=== PATIENT | male | born 1960 | race Caucasian/White ===

== ENCOUNTER 2018-02-20 11:46 | Day surgery (SDC) | payer OTHER, SELFPAY ==
[2018-02-20] VITALS (8 sets, daily range): BP systolic 114–137; BP diastolic 48–81; PULSE 55–84; RESP 14–18; TEMP 36.6–36.8; O2SAT 93–99; BMI 37.5
[2018-02-20] MEDS: LACTATED RINGERS 1,000 ML 42 ML IV ×2 (12:28→15:17)
[2018-02-20] MEDS: CEFAZOLIN 2 GM/100 ML FROZ.PIGGY IV (14:27)
--- NOTE | 2018-02-20 14:28 | PM.PREOP ---
Pre-operative Note Interval Note History & Physical reviewed/Exam performed by Physician: Yes Changes to H&P: Yes
--- NOTE | 2018-02-20 14:30 | P.OP_ITS ---
Operative Date/Time/Diagnoses Date of procedure: 02/20/18 Time of procedure: 14:28 Post-op diagnosis: same Procedure & Clinicians Procedure: Left proximal hamstring repair Same procedure as scheduled: Yes Indications: This is a 57-year-old gentleman who fell and had an injury at work and sustained acute injury to his left hamstrings. MRI scan confirmed a complete rupture of the proximal hamstring insertion is brought to the operating room for repair. Surgeon: Marycarmen Son Digital Advertising Analyst: Nkechi Chambers Anesthesia Type: General Operative Notes Findings: Complete rupture of the proximal hamstring insertion, adequate mobilization of the tendon an adequate repair to the ischium Closure Type: primary Specimen(s): none sent Implants & Drains: Suture anchors Estimated Blood Loss (mL): 100 Procedure in detail: Patient was brought to the operating room and underwent induction of a general anesthesia. He was carefully rolled into the prone position with careful padding of his chest with chest rolls. His left lower extremity was prepped draped standard sterile fashion. A time-out was performed and antibiotics were given. An incision was made at the gluteal fold. Deep Gelpi retractors were placed. Dissection was carried out down to the fascia overlying the gluteus which was carefully identified and then freed proximally. A Patel retractor was placed deep to the gluteal tissue which was carefully retracted proximally. Dissection was then carried out down more inferiorly towards the ischium. The avulsion region from the ischium was carefully identified. Small amount of soft tissue was carefully debrided from the ischium and multiple retractors were placed around the ischium. A Santana was used to further freshen the ischium. The hamstrings fascia was incised. There was a palpable tendon mass noted proximally. Sciatic nerve was carefully identified mobilized and adhesions were gently released between the hamstring and the sciatic nerve. The tendon that was then meticulously mobilized. It was carefully freed and pulled proximally there was a several cm gap noted and there were some moderate adhesions of the hamstring tissue. Suture anchors were placed into the ischium it was punched and tapped with a metal tap. Two small anchors were attempted they did not provide adequate bite and I switched over to a larger suture anchor. Good quality fixation was achieved in the ischium. A 6 strand repair was performed pulling the hamstring proximally and reattaching it to the ischium. Good quality repair was achieved. The wound was meticulously irrigated with normal saline. Marcaine was meticulously injected and the wound was closed with interrupted Vicryl and barbed stitches. Wound was dressed sterilely. Patient was placed in a hip extension brace. The overall postoperative plan is to avoid hip flexion and to avoid full knee extension. He should be partial weight-bearing on the left lower extremity for 6 weeks postoperatively. Complications: none Condition: stable Disposition: same day surgery Plan for aftercare: Partial weight-bearing left lower extremity, full-time use of brace to avoid maximum hip flexion and maximum knee extension.
--- NOTE | 2018-02-20 15:01 | SUR.OPER ---
Prone on padded OR bed, head in foam head support, gel chest rolls, gel pad under knees, pillow under lower legs, toes free of pressure, arms secured on padded arm boards at <90 degrees abduction. Safety belt at thigh.
[2018-02-20] MEDS: CEFAZOLIN 1 GM VIAL IV (15:15)
[2018-02-20] MEDS: BUPIVACAINE 0.25% W/ EPI VIAL 50 ML INJ (15:16)
--- NOTE | 2018-02-20 19:02 | SUR.PHASEII ---
While D/C instructions verbalized with both patient and son, written copy along with extra equipment from brace left at hospital. Text to son to return if possible to lemon picker made. Awaiting return call or message at this point.
== END 2018-02-20 18:50 | disposition home or self-care (01) ==
PROVIDERS: PCP Family Medicine; Visit Provider Orthopaedic Surgery
PROC: (CPT 27650; principal; 2018-02-20 13:45)
DX: S76.312A Strain of muscle, fascia and tendon of the posterior muscle group at thigh level, left thigh, initial encounter (principal); W18.30XA Fall on same level, unspecified, initial encounter; Y99.0 Civilian activity done for income or pay
CPT/HCPCS: 27386; J0330; J0690; J1100; J2250; J2405; J2704; J3010